=== PATIENT | female | born 1990 | race Two or more races ===

== ENCOUNTER 2020-01-20 13:50 | Day surgery (SDC) | payer OTHER | END 2020-01-20 22:50 | disposition home or self-care (01) | LOC: CIR.AMB 13:50 | PROVIDERS: ATTEND Obstetrics & Gynecology Obstetrics | DX: N93.8 Other specified abnormal uterine and vaginal bleeding (principal); Z20.828 Contact with and (suspected) exposure to other viral communicable diseases ==